=== PATIENT | female | born 1945 | race Asian ===

== ENCOUNTER 2021-06-13 11:03 | Emergency (ER) | payer MEDICARE, MEDICAID ==
[~2021-06-13] VITALS: Ht 152.4 cm; Wt 56.8 kg
[2021-06-13 12:15] VITALS: BP 126/74
[2021-06-13] MEDS ORDERED: IBUPROFEN 600 MG TABLET PO ONE (12:15)
[2021-06-13] MEDS ORDERED: IBUP-2070 PO (12:55)
== END 2021-06-13 13:09 | disposition home or self-care (01) ==
LOC: EMS 11:05
DX: S32.049A Unspecified fracture of fourth lumbar vertebra, initial encounter for closed fracture (principal); W18.39XA Other fall on same level, initial encounter; Y93.89 Activity, other specified; Y92.89 Other specified places as the place of occurrence of the external cause; Y99.8 Other external cause status
CPT/HCPCS: 72100; 99283